=== PATIENT | female | born 1965 | race Asian ===

== ENCOUNTER 2018-08-31 16:17 | Emergency (ER) | payer BC, OTHER ==
[2018-08-31 16:39] VITALS: TEMP 98; BMI 25.6
--- NOTE | 2018-08-31 16:58 | PDOC ---
History of Present Illness - General Chief Complaint: Chest Pain Stated Complaint: PAIN Time Seen by Provider: 08/31/18 16:42 - History of Present Illness Initial Comments: 08/31/18 17:00 The patient is a 52 year old female with no reported PMH who presents to our ED for chest pain. 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 when she felt a non-qualifiable, chest pain that lasted 10 minutes. Pain started in her R shoulder and radiated to her substernal chest. No associated shortness of breath, lightheadedness, palpitations. No previous h /o similar pain. Was evaluated by a part time 10+ years previous for stress testing and believes everything was normal. No known family cardiac history. Lifetime non-smoker. Currently fasting for Ramadan. NKDA Surgical: none reported Social: denies toxic habits PMD: Dr. Grant Marshall Past History - Past Medical History Allergies/Adverse Reactions: Allergies Allergy/AdvReac Type Severity Reaction Status Date / Time No Known Allergies Allergy Unverified 08/31/18 16:39 Home Medications: Ambulatory Orders NK [No Known Home Medication] 08/31/18 COPD: No Thyroid Disease: No - Immunization History Immunization Up to Date: Yes - Suicide/Smoking/Psychosocial Hx Smoking History: Never smoked Have you smoked in the past 12 months: No Number of Cigarettes Smoked Daily: 0 Information on smoking cessation initiated: No Hx Alcohol Use: No Drug/Substance Use Hx: No Substance Use Type: None Review of Systems - Review of Systems Constitutional: No: Chills, Fever HEENTM: No: Blurred Vision, Recent change in vision Respiratory: No: Cough, Shortness of Breath Cardiac (ROS): Yes: Chest Pain, Chest Tightness. No: Lightheadedness, Palpitations ABD/GI: No: Constipated, Diarrhea, Nausea, Vomiting : No: Burning, Dysuria *Physical Exam - Vital Signs Last Vital Signs Temp Pulse Resp BP Pulse Ox 98 F 64 16 121/86 100 08/31/18 16:20 08/31/18 16:20 08/31/18 16:20 08/31/18 16:20 08/31/18 16:20 - Physical Exam General Appearance: Yes: Nourished, Appropriately Dressed, Thin HEENT: positive: Normal Voice, Hearing Grossly Normal Neck: positive: Trachea midline, Supple Respiratory/Chest: positive: Lungs Clear, Normal Breath Sounds Cardiovascular: positive: S1, S2. negative: Edema, JVD, Murmur Gastrointestinal/Abdominal: positive: Normal Bowel Sounds, Soft Extremity: positive: Normal Capillary Refill, Normal Inspection Integumentary: positive: Normal Color, Dry, Warm Neurologic: positive: lacquerer II-XII NML intact, Fully Oriented, Alert ED Treatment Course - LABORATORY CBC & Chemistry Diagram: 08/31/18 16:58 08/31/18 16:58 Medical Decision Making - Medical Decision Making 08/31/18 18:04 52 year old female with solo episode of chest pain that started in her back and radiated to her chest. VS unremarkable. Frontal diagnosis: r/o ACS, Esophageal Spasm, GERD, Costochondritis, MSK. Considered aortic dissection but R arm BP 118/80 and L arm BP 109/78 less likely. PLAN: 1. Troponin x2 - as patient symptom onset 45 minutes prior to presentation 2. EKG, CXR 3. Basic labs Reassess 08/31/18 20:45 Troponin (-) x1 Patient reports 1-2 minutes of chest tightness while ambulating to the bathroom and while moving her bed. Toradol for possible MSK pain. 08/31/18 21:12 Symptomatically improved s/p Toradol Troponin (-) x2 At this time I have low clinical suspicion for an acute medical emergency including ACS. Will discharge home with return precautions, copies of EKG, labs and instruction to f/u with PMD and cardiology. I discussed the physical exam findings, ancillary test results and final diagnoses with the patient. I answered all of the patient's questions. The patient was satisfied with the care received and felt comfortable with the discharge plan and treatment plan. The patient will return to the Emergency Department with any new, persistent or worsening symptoms. *DC/Admit/Observation/Transfer Diagnosis at time of Disposition: Chest pain - Discharge Dispostion Disposition: HOME Condition at time of disposition: Good Decision to Admit order: No - Referrals Referrals: rGant Marshall [Primary Care Provider] - - Patient Instructions Printed Discharge Instructions: DI for Atypical Chest Pain Additional Instructions: You were evaluated today for your chest pain. Your x-ray, labs and EKG showed no concerning findings. At this time you are safe for discharge home. Please follow-up with your primary care doctor in the next 3 days. We are providing you with copies of your labs and EKG. Please bring these to your primary care doctor. You also need evaluation by a part time. Your care is not complete until you are evaluated by your primary care doctor and a part time. Return to the Emergency Department for any new/worsening/concerning symptoms. - Post Discharge Activity
[2018-08-31 17:29] LABS: BASO % 0.9 % (0-2.0); EOS % 1.4 % (0-4.5); HEMATOCRIT 38.7 % (32.4-45.2); HEMOGLOBIN 12.5 GM/dL (10.7-15.3); LYMPH % 33.6 % (8-40); MCH 27.1 pg (25.7-33.7); MCHC 32.3 g/dl (32.0-36.0); MEAN CELL VOLUME 83.7 fl (80-96); MEAN PLT VOLUME 8.4 fl (7.5-11.1); MONO % 8.7 % (3.8-10.2); NEUT % 55.4 % (42.8-82.8); PLATELET COUNT 334 K/MM3 (134-434); RBC 4.62 M/mm3 (3.60-5.2); RDW 14.4 % (11.6-15.6); WHITE BLOOD COUNT 5.7 K/mm3 (4.0-10.0)
--- NOTE | 2018-08-31 18:26 | PDOC ---
Documentation entered by Kisha Rosario SCRIBE, acting as scribe for Satnam Ricci MD. Satnam Ricci MD: This documentation has been prepared by the Abraham broderick Daisy, SCRIBE, under my direction and personally reviewed by me in its entirety. I confirm that the documentation accurately reflects all work, treatment, procedures, and medical decision making performed by me. Attending Attestation - Resident Resident Name: Efrain Hodgson - ED Attending Attestation I have performed the following: I have examined & evaluated the patient, The case was reviewed & discussed with the resident, I agree w/resident's findings & plan, Exceptions are as noted - HPI HPI: 08/31/18 17:09 The patient is a 52YOF with no PMH who presents to the ER for evaluation of chest pain at 3:30PM. She states the chest pain began while driving and lasted approximately 30 minutes. She reports the chest pain began in her L shoulder and radiated to her L chest. She described the chest pain as squeezing and sharp in nature. Pt endorses SOB while she had the pain but denies any now. Denies any similar chest pain in the past. Denies any chest pain at this time and is currently asymptomatic. She had a negative stress test approximately 10- 15 years ago. Denies any positive family cardiac history. Denies any calf swelling, dyspnea on exertion, lightheadedness, diaphoresis, fever, chills, N/ V. Allergies: NKDA - Physicial Exam PE: 08/31/18 18:21 "GENERAL: Awake, alert, and fully oriented, in no acute distress. HEAD: No signs of trauma EYES: PERRLA, EOMI, sclera anicteric, conjunctiva clear ENT: Auricles normal inspection, hearing grossly normal, nares patent, oropharynx clear without exudates. Moist mucosa NECK: Nontender, no stepoffs, Normal ROM, supple, no lymphadenopathy, JVD, or masses LUNGS: Breath sounds equal, clear to auscultation bilaterally. No wheezes, and no crackles HEART: Regular rate and rhythm, normal S1 and S2, no murmurs, rubs or gallops ABDOMEN: Soft, nontender, normoactive bowel sounds. No guarding, no rebound. No masses EXTREMITIES: Normal range of motion, no edema. No clubbing or cyanosis. No cords, erythema, or tenderness NEUROLOGICAL: Cranial nerves II through XII intact. 5/5 strength and sensation in all extremities, Normal speech, normal gait, normal cerebellar function SKIN: Warm, Dry, normal turgor, no rashes or lesions noted. - Medical Decision Making 08/31/18 18:21 52 F with atypical L sided chest pain, now resolved. EKG without any ischemic changes, but will r/o ACS with 2 trops. Pt with no DVT risk factors, no clinical signs of DVT. - Labs, trop - CXR 08/31/18 21:12 CXR clear Labs wnl Trop negative x2 Pt reassessed - states that pain has resolved, has not had recurrence of the pain Pt is well appearing, with normal vitals. Clinically stable for DC at this time. I discussed the physical exam findings, ancillary test results and final diagnoses with the patient. I answered all of the patient's questions. The patient was satisfied with the care received and felt comfortable with the discharge plan and treatment plan. The patient agrees to follow up with the primary care physician within 24-72 hours.
[2018-08-31 18:55] LABS: ALBUMIN 3.8 g/dl (3.4-5.0); ALK PHOS 100 U/L (45-117); ANION GAP 9 MMOL/L (8-16); BILIRUBIN,TOTAL 0.7 mg/dL (0.2-1); BLOOD UREA NITROGEN 17 mg/dL (7-18); CHLORIDE 106 mmol/L (98-107); CO2 24 mmol/L (21-32); CREATININE 0.5 mg/dL (0.55-1.3); GLUCOSE,RANDOM 74 mg/dL (74-106); N-TERMINAL BNP 22.2 pg/ml (5-125); POTASSIUM 4.3 mmol/L (3.5-5.1); SGOT/AST 35 U/L (15-37); SGPT/ALT 21 U/L (13-61); SODIUM 138 mmol/L (136-145); TOT PROT 7.1 g/dl (6.4-8.2)
[2018-08-31 21:55] VITALS: BP 110/80; PULSE 85
--- NOTE | 2018-09-01 11:04 | EKG ---
Test Reason : Blood Pressure : / mmHG Vent. Rate : 070 BPM Atrial Rate : 070 BPM P-R Int : 166 ms QRS Dur : 082 ms QT Int : 380 ms P-R-T Axes : 031 -06 030 degrees QTc Int : 410 ms NORMAL SINUS RHYTHM RSR' OR QR PATTERN IN V1 SUGGESTS RIGHT VENTRICULAR CONDUCTION DELAY NO PREVIOUS ECGS AVAILABLE Confirmed by BECK TAYLOR MD ([id number]) on 09/01/2018 11:03:57 AM Referred By: Confirmed By:BECK TAYLOR MD
== END 2018-08-31 21:55 | disposition home or self-care (01) ==
LOC: JER 16:17
DX: R07.9 Chest pain, unspecified (principal)
CPT/HCPCS: 36415; 71046-TC-FY; 80053; 82550; 83880; 84484; 85025; 93005; 93010; 99283-25

== ENCOUNTER 2023-08-31 04:35 | Day surgery (SDC) | payer OTHER ==
[2023-08-25 09:24] VITALS: BMI 23.0
[2023-08-31 08:32] VITALS: TEMP 98.4
[2023-08-31 09:03] VITALS: PULSE 62; RESP 18
[2023-08-31 09:04] VITALS: BP 118/73
== END 2023-08-31 09:01 | disposition home or self-care (01) ==
LOC: JASU-ENDO 04:35
PROVIDERS: ATTEND Internal Medicine Gastroenterology
PROC: 0DJD8ZZ Inspection of Lower Intestinal Tract, Via Natural or Artificial Opening Endoscopic (ICD-10-PCS; principal; 2023-08-31 08:00)
DX: Z12.11 Encounter for screening for malignant neoplasm of colon (principal); K57.30 Diverticulosis of large intestine without perforation or abscess without bleeding